=== PATIENT | female | born 1990 | race American Indian/Alaskan Native ===

== ENCOUNTER 2018-09-24 10:50 | Emergency (ER) | payer OTHER ==
[2018-09-24 11:07] VITALS: BP 129/67
[2018-09-24] MEDS ORDERED: MORPHINE IV ONE (11:34)
[2018-09-24] MEDS ORDERED: ZOFRAN IV ONE (11:34)
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
[2018-09-24] MEDS ORDERED: IBUPROFEN PO ONE (12:57)
== END 2018-09-24 13:49 | disposition home or self-care (01) ==
LOC: ED 10:50
DX: S70.11XA Contusion of right thigh, initial encounter (principal); Z90.49 Acquired absence of other specified parts of digestive tract; Z79.899 Other long term (current) drug therapy; V49.59XA Passenger injured in collision with other motor vehicles in traffic accident, initial encounter; Y93.89 Activity, other specified; Y92.410 Unspecified street and highway as the place of occurrence of the external cause; Y99.8 Other external cause status
CPT/HCPCS: 73552; 96374; 96375; 99284; J2270; J2405